=== PATIENT | male | born 1940 | race Caucasian/White ===

== ENCOUNTER 2018-05-22 15:34 | Inpatient (IN) | payer OTHER ==
[~2018-05-22] VITALS: Ht 175.3 cm; Wt 71.4 kg
[2018-05-22 16:35] LABS: HEMATOCRIT 49.1 % (38.0-50.0); HEMOGLOBIN 17.1 G/DL (12.5-16.6); MCH 31.6 PG (29.0-34.0); MCHC 34.8 G/DL (30.0-36.0); MCV 90.8 FL (86-99); PLATELET COUNT 230 K/uL (156-360); RBC DIS.WIDTH-CV 12.2 % (11.8-14.6); RBC DIS.WIDTH-SD 40.3 % (39-53); RED BLOOD COUNT 5.41 M/uL (4.00-5.50); WHITE BLOOD COUNT 26.6 K/uL (4.1-10.2)
[2018-05-22 16:55] LABS: ALBUMIN 4.3 g/dL (3.2-4.8); CHLORIDE 101 mEq/L (99-109); POTASSIUM 4.1 mEq/L (3.7-5.4); SODIUM 135 mEq/L (136-147)
[2018-05-22 16:57] LABS: GLUCOSE 158 mg/dL (70-99)
[2018-05-22 16:58] LABS: TOTAL PROTEIN 7.8 g/dL (6.4-8.3)
[2018-05-22 17:01] LABS: ALKALINE PHOSPHATASE 88 IU/L (3-129); CREATININE 1.1 mg/dL (0.6-1.3); GFR ESTIMATE (CALCULATED) > 59 mL/min/ (58.99-99999)
[2018-05-22 17:02] LABS: UREA NITROGEN (BUN) 18 mg/dL (9-23)
[2018-05-22 17:03] LABS: AST (GOT) 20 IU/L (2-34)
[2018-05-22 17:04] LABS: ALT (GPT) 19 IU/L (3-49); LIPASE 5 U/L (1.0-51.0)
[2018-05-22 17:37] LABS: APPEARANCE CLEAR ((CLEAR)); BILIRUBIN NEGATIVE; BLOOD NEGATIVE; COLOR YELLOW ((YELLOW)); GLUCOSE (STRIP) >=500; KETONES 20; LEUKOCYTES NEGATIVE; NITRITE NEGATIVE; PROTEIN (STRIP) 30; SPECIFIC GRAVITY 1.025 (1.000-1.030); UCUL ADDED? NO; UROBILINOGEN 0.2 MG/DL (0.2-1.0)
[2018-05-22] MEDS ORDERED: MOVE FREE JOIN1 EACH PO (20:58)
[2018-05-22] MEDS ORDERED: VITAMIN B12 100MCG PO (20:59)
[2018-05-22] MEDS ORDERED: MAGNESIUM OXID200 MG PO (21:00)
[2018-05-22] MEDS ORDERED: VITAMIN D-32000 UNI2 PO (21:00)
[2018-05-22] MEDS ORDERED: TYLENOL REGULA325 MG PO (21:02)
[2018-05-22] MEDS ORDERED: ADVIL200 MG PO (21:04)
[2018-05-22] MEDS ORDERED: PEPTO BISMOL240 ML PO (21:04)
[2018-05-22] MEDS ORDERED: TUMS500 MG PO (21:05)
[2018-05-22 21:35] VITALS: BP 126/68
[2018-05-23 00:31] VITALS: BP 121/70
[2018-05-23 05:27] VITALS: BP 102/61
[2018-05-23 06:02] LABS: ALBUMIN 3.2 G/DL (3.2-4.8); ALKALINE PHOSPHATASE 65 IU/L (3-129); ALT (GPT) 13 IU/L (3-49); AST (GOT) 15 IU/L (2-34); C-REACTIVE PROTEIN 251.2 MG/L (0-10); CHLORIDE 104 MEQ/L (99-109); GFR ESTIMATE (CALCULATED) > 59 mL/min/ (58.99-99999); GLUCOSE 129 mg/dL (70-99); SODIUM 137 MEQ/L (136-147); TOTAL BILIRUBIN 1.6 MG/DL (0.0-1.0); TOTAL PROTEIN 5.8 G/DL (6.4-8.3); UREA NITROGEN (BUN) 18 mg/dL (9-23)
[2018-05-23 06:05] LABS: BASOPHIL (%) 0.2 % (0-1); EOSINOPHIL (%) 0 % (0-5); HEMATOCRIT 40.4 % (38.0-50.0); LYMPHOCYTE (%) 3.9 % (15-42); MCH 31.9 PG (29.0-34.0); MCHC 34.9 G/DL (30.0-36.0); MCV 91.4 FL (86-99); MONOCYTE (%) 4.2 % (3-12); NEUTROPHIL (%) 90.7 % (45-76); NEUTROPHIL COUNT 22.6 K/uL (1.8-6.4); PLATELET COUNT 196 K/uL (156-360); RBC DIS.WIDTH-CV 12.5 % (11.8-14.6); RBC DIS.WIDTH-SD 41.5 % (39-53); RED BLOOD COUNT 4.42 M/uL (4.00-5.50); WHITE BLOOD COUNT 24.9 K/uL (4.1-10.2)
[2018-05-23 06:07] LABS: HEMOGLOBIN 14.1 G/DL (12.5-16.6)
[2018-05-23 06:41] LABS: LIPASE 8 U/L (1.0-51.0)
[2018-05-23 07:35] VITALS: BP 158/100
[2018-05-23 15:41] VITALS: BP 110/58
[2018-05-23 19:57] VITALS: BP 101/61
[2018-05-24 00:25] VITALS: BP 105/63
[2018-05-24 06:07] LABS: HEMATOCRIT 35.7 % (38.0-50.0); HEMOGLOBIN 12.6 G/DL (12.5-16.6); MCH 32.4 PG (29.0-34.0); MCHC 35.3 G/DL (30.0-36.0); MCV 91.8 FL (86-99); PLATELET COUNT 167 K/uL (156-360); RBC DIS.WIDTH-CV 12.9 % (11.8-14.6); RBC DIS.WIDTH-SD 43.2 % (39-53); RED BLOOD COUNT 3.89 M/uL (4.00-5.50); WHITE BLOOD COUNT 16.4 K/uL (4.1-10.2)
[2018-05-24 06:26] LABS: ALBUMIN 2.6 g/dL (3.2-4.8); CHLORIDE 106 mEq/L (99-109); SODIUM 137 mEq/L (136-147)
[2018-05-24 06:28] LABS: GLUCOSE 115 mg/dL (70-99)
[2018-05-24 06:29] LABS: TOTAL PROTEIN 4.6 g/dL (6.4-8.3)
[2018-05-24 06:32] LABS: ALKALINE PHOSPHATASE 79 IU/L (3-129); CREATININE 1.1 mg/dL (0.6-1.3); GFR ESTIMATE (CALCULATED) > 59 mL/min/ (58.99-99999)
[2018-05-24 06:34] LABS: AST (GOT) 14 IU/L (2-34); TOTAL BILIRUBIN 0.9 mg/dL (0.0-1.0); UREA NITROGEN (BUN) 29 mg/dL (9-23)
[2018-05-24 06:35] LABS: ALT (GPT) 15 IU/L (3-49)
[2018-05-24 07:13] LABS: C-REACTIVE PROTEIN 302.1 MG/L (0-10)
[2018-05-24 07:49] VITALS: BP 119/71
[2018-05-24 11:55] VITALS: BP 128/71
[2018-05-24 18:29] VITALS: BP 108/53
[2018-05-24 18:30] VITALS: BP 108/53
[2018-05-24 18:31] VITALS: BP 122/72
[2018-05-25 00:08] VITALS: BP 128/73
[2018-05-25 04:02] VITALS: BP 128/73
[2018-05-25 05:28] LABS: BASOPHIL (%) 0.1 % (0-1); EOSINOPHIL (%) 0 % (0-5); HEMATOCRIT 34.4 % (38.0-50.0); HEMOGLOBIN 11.9 G/DL (12.5-16.6); IMMATURE GRANULOCYTE (%) 0.7 % (0.0-0.7); LYMPHOCYTE (%) 4.2 % (15-42); LYMPHOCYTE COUNT 0.5 K/uL (1.0-2.8); MCH 31.6 PG (29.0-34.0); MCHC 34.6 G/DL (30.0-36.0); MCV 91.5 FL (86-99); MONOCYTE COUNT 0.8 K/uL (0-0.8); NEUTROPHIL COUNT 10.5 K/uL (1.8-6.4); PLATELET COUNT 198 K/uL (156-360); RBC DIS.WIDTH-CV 12.7 % (11.8-14.6); RBC DIS.WIDTH-SD 42.5 % (39-53); RED BLOOD COUNT 3.76 M/uL (4.00-5.50)
[2018-05-25 06:06] LABS: ALBUMIN 2.6 G/DL (3.2-4.8); ALKALINE PHOSPHATASE 88 IU/L (3-129); CHLORIDE 104 MEQ/L (99-109); CREATININE 0.9 MG/DL (0.6-1.3); GFR ESTIMATE (CALCULATED) > 59 mL/min/ (58.99-99999); GLUCOSE 169 mg/dL (70-99); SODIUM 133 MEQ/L (136-147); TOTAL PROTEIN 5.2 G/DL (6.4-8.3); UREA NITROGEN (BUN) 22 mg/dL (9-23)
[2018-05-25 06:08] LABS: ALT (GPT) 30 IU/L (3-49); AST (GOT) 34 IU/L (2-34); TOTAL BILIRUBIN 0.4 MG/DL (0.0-1.0)
[2018-05-25 06:25] LABS: C-REACTIVE PROTEIN 262.4 MG/L (0-10)
[2018-05-25 07:34] VITALS: BP 167/81
[2018-05-25 09:52] LABS: THYROTROPIN (TSH) 1.1 MIU/L (0.4-5.5)
[2018-05-25 11:16] LABS: HEMOGLOBIN A1c (GLYCOHEMOGLOB) 5.6 % (Below 5.7)
[2018-05-25 11:17] VITALS: BP 138/82
[2018-05-25 15:32] VITALS: BP 171/88
[2018-05-25 19:41] VITALS: BP 140/77
[2018-05-26 00:11] VITALS: BP 152/78
[2018-05-26 05:41] LABS: BASOPHIL (%) 0.1 % (0-1); EOSINOPHIL (%) 0.2 % (0-5); HEMATOCRIT 33.7 % (38.0-50.0); HEMOGLOBIN 11.6 G/DL (12.5-16.6); IMMATURE GRANULOCYTE (%) 0.5 % (0.0-0.7); LYMPHOCYTE (%) 6.1 % (15-42); LYMPHOCYTE COUNT 0.8 K/uL (1.0-2.8); MCH 30.9 PG (29.0-34.0); MCHC 34.4 G/DL (30.0-36.0); MCV 89.6 FL (86-99); MONOCYTE (%) 9.7 % (3-12); MONOCYTE COUNT 1.3 K/uL (0-0.8); NEUTROPHIL (%) 83.4 % (45-76); PLATELET COUNT 226 K/uL (156-360); RBC DIS.WIDTH-CV 12.3 % (11.8-14.6); RBC DIS.WIDTH-SD 40.6 % (39-53); RED BLOOD COUNT 3.76 M/uL (4.00-5.50); WHITE BLOOD COUNT 13.2 K/uL (4.1-10.2)
[2018-05-26 06:13] LABS: ALBUMIN 2.2 G/DL (3.2-4.8); ALKALINE PHOSPHATASE 84 IU/L (3-129); ALT (GPT) 33 IU/L (3-49); AST (GOT) 31 IU/L (2-34); CHLORIDE 102 MEQ/L (99-109); CREATININE 0.9 MG/DL (0.6-1.3); DIRECT BILIRUBIN 0.1 mg/dL (0.0-0.3); GFR ESTIMATE (CALCULATED) > 59 mL/min/ (58.99-99999); GLUCOSE 133 mg/dL (70-99); POTASSIUM 3.9 MEQ/L (3.7-5.4); SODIUM 135 MEQ/L (136-147); TOTAL BILIRUBIN 0.4 MG/DL (0.0-1.0); UREA NITROGEN (BUN) 20 mg/dL (9-23)
[2018-05-26 06:16] LABS: TOTAL PROTEIN 4.3 G/DL (6.4-8.3)
[2018-05-26 07:21] VITALS: BP 151/74
[2018-05-26 11:21] VITALS: BP 174/83
[2018-05-26] MEDS ORDERED: ACETAMINOPHEN-1 EAC1 PO (13:59)
[2018-05-26] MEDS ORDERED: COLACE100 MG PO (13:59)
[2018-05-26] MEDS ORDERED: AUGMENTIN875 MG PO (13:59)
[2018-05-26] MEDS ORDERED: FLORASTOR250 MG PO (13:59)
[2018-05-26 15:36] VITALS: BP 144/81
== END 2018-05-26 19:08 | disposition home or self-care (01) | DRG 417 ==
LOC: EME 15:34 → EDOF 20:40 → 4SOUTH 20:40 → ENRESERV 20:41 → 4SOUTH 21:28
PROVIDERS: Physician Assistant; Student in an Organized Health Care Education/Training Program
PROC: 0FT44ZZ Resection of Gallbladder, Percutaneous Endoscopic Approach (ICD-10-PCS; principal; 2018-05-24)
DX: K80.00 Calculus of gallbladder with acute cholecystitis without obstruction (principal); K82.2 Perforation of gallbladder; K21.9 Gastro-esophageal reflux disease without esophagitis
CPT/HCPCS: 74177; 76705; 80048; 80053; 80076; 81003; 83036; 83605; 83690; 84443; 85025; 85027; 86140; 87040; 87070; 87075; 87205; 88304; 93005; 94799; 99281; 99285; G0378; J1100; J1170; J1885; J2250; J2270; J2405; J2710; J3010; J7030; J7120; J7643; S0020; S0074